=== PATIENT | female | born 2000 | race Caucasian/White ===

== ENCOUNTER 2021-08-06 15:12 | Observation (INO) | payer OTHER ==
[~2021-08-06] VITALS: Ht 170.2 cm; Wt 97.2 kg
[2021-08-06 16:14] LABS: RED BLOOD COUNT 4.68 M/UL (4.00-5.10); WHITE BLOOD COUNT 9.2 K/UL (4.5-11.0)
[2021-08-06 16:42] LABS: BUN/CREATININE RATIO 18 (0-10)
[2021-08-06] MEDS ORDERED: PRENATAL TABLE1 EAC1 PO (22:48)
[2021-08-07] MEDS ORDERED: INDOCIN 50 MG C50 MG PO (13:03)
== END 2021-08-07 13:38 | disposition home or self-care (01) ==
LOC: ER1 15:12 → CDU 17:51 → M/S 21:56
PROVIDERS: Emergency Medicine; ADMIT Obstetrics & Gynecology
DX: O99.891 Other specified diseases and conditions complicating pregnancy (principal); O99.211 Obesity complicating pregnancy, first trimester; O46.91 Antepartum hemorrhage, unspecified, first trimester; M94.0 Chondrocostal junction syndrome [Tietze]; E66.9 Obesity, unspecified; Z3A.01 Less than 8 weeks gestation of pregnancy; Z20.822 Contact with and (suspected) exposure to COVID-19; Z88.1 Allergy status to other antibiotic agents; Z79.899 Other long term (current) drug therapy
CPT/HCPCS: ECHO; 71045; 76801; 80053; 81001; 82550; 82553; 83874; 84484; 84702; 85025; 85379; 87086; 93005; 93306; 99285; G0378; J7030; U0002